=== PATIENT | female | born 1995 | race Two or more races ===

== ENCOUNTER 2024-01-20 13:17 | Emergency (ER) | payer MEDICAID, OTHER ==
[~2024-01-20] VITALS: Ht 162.6 cm; Wt 115.0 kg
[2024-01-20 13:17] VITALS: BP 125/84; PULSE 107; RESP 16; O2SAT 98
== END 2024-01-20 16:39 | disposition left against medical advice (07) ==
LOC: ER 13:17
DX: T19.2XXA Foreign body in vulva and vagina, initial encounter (principal); Z53.21 Procedure and treatment not carried out due to patient leaving prior to being seen by health care provider; X58.XXXA Exposure to other specified factors, initial encounter; Y93.89 Activity, other specified; Y92.89 Other specified places as the place of occurrence of the external cause; Y99.8 Other external cause status